=== PATIENT | female | born 1990 | race Caucasian/White ===

== ENCOUNTER → 2016-10-22 | Outpatient (CLI) | payer OTHER ==
[2016-10-22 17:03] LABS: Blood Urea Nitrogen 15 mg/dL (7-17); Non-African American GFR(MDRD) >60 (>60 ml/min/1.73 sqM)
== END | disposition home or self-care (01) ==
LOC: LABWHC1 16:21
PROVIDERS: ATTEND Orthopaedic Surgery Orthopaedic Surgery of the Spine
DX: Z01.812 Encounter for preprocedural laboratory examination (principal); N28.9 Disorder of kidney and ureter, unspecified
CPT/HCPCS: 36415; 82565; 84520

== ENCOUNTER 2017-05-01 10:10 | Emergency (ER) | payer OTHER ==
[2017-05-01 11:27] LABS: Appearance,Urine Cloudy (Clear); Bilirubin,Urine Negative (Negative); Glucose,Urine (UA) Negative (Negative); Ketones,Urine Negative (Negative); Leukocyte Esterase,Urine Negative (Negative); Mucus,Urine Few /hpf; Nitrite,Urine Negative (Negative); PH, Urine 5.5 (5.0-8.0); Particle Count 7403; Protein,Urine Trace (Negative); RBC,Urine >182 /hpf (0-5); Squamous Epithelial Cell,Urine 2 /hpf (0-4); UA Billing (MACRO vs. MICRO) MICRO; Urobilinogen,Urine <2.0 mg/dL (<2.0); WBC,Urine 4 /hpf (0-5)
[2017-05-01] MEDS ORDERED: SODIUM CHLORIDE 0.9% 1,000 ML IV STA (11:47)
[2017-05-01] MEDS ORDERED: MORPHINE SULFATE 4 MG/ML SYRINGE IV STA (11:47)
[2017-05-01] MEDS ORDERED: SODIUM CHLORIDE 0.9% 500 ML IV STA (11:47)
[2017-05-01] MEDS ORDERED: KETOROLAC 30 MG/ML 1 ML VIAL IVP STA (11:47)
--- NOTE | 2017-05-01 12:08 | CT ---
EXAMINATION TYPE: CT abdomen pelvis wo con DATE OF EXAM: 05/01/2017 COMPARISON: NONE HISTORY: Left sided back pain CT DLP: 754.4 mGycm Automated exposure control for dose reduction was used. TECHNIQUE: Helical acquisition of images was performed from the lung bases through the pelvis. FINDINGS: LUNG BASES: No significant abnormality is appreciated. LIVER/GB: No significant abnormality is appreciated. PANCREAS: No significant abnormality is seen. SPLEEN: No significant abnormality is seen. ADRENALS: No significant abnormality is seen. KIDNEYS: Mild to moderate left hydronephrosis secondary to a 3 mm distal left ureteral calculus sever al centimeters above the UVJ. URINARY BLADDER: No significant abnormality is seen. ADENOPATHY: None visualized. OSSEOUS STRUCTURES: Hypertrophic and degenerative change of the spine. 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 Additional levels Schmorl nodes seen.. BOWEL: No significant abnormality is seen. OTHER: Aorta of normal caliber. There is a right adnexal 3.4 cm cystic lesion likely related to ovari an cyst. IUD noted. IMPRESSION: 1. MILD TO MODERATE LEFT HYDRONEPHROSIS SECONDARY TO 3 MM DISTAL LEFT URETERAL CALCULUS. 2. THERE IS A 3.4 CM RIGHT ADNEXAL CYST LIKELY OVARIAN.
[2017-05-01 12:11] LABS: Basophils % (A) 0 %; CHCM 35.2; Eosinophils # (A) 0.2 k/uL (0-0.7); Eosinophils % (A) 2 %; HCT 42.9 % (34.0-46.0); HDW 2.63; HGB 14.7 gm/dL (11.4-16.0); Luc # (Auto) 0.09; Luc % (Auto) 1; Lymphocytes # (A) 1.1 k/uL (1.0-4.8); Lymphocytes % (A) 11 %; MCH 32.3 pg (25.0-35.0); MCHC 34.2 g/dL (31.0-37.0); MCV 94.2 fL (80.0-100.0); Monocytes # (A) 0.4 k/uL (0-1.0); Monocytes % (A) 4 %; Neutrophils # (A) 8.4 k/uL (1.3-7.7); Neutrophils % (A) 82 %; RBC 4.55 m/uL (3.80-5.40); WBC 10.2 k/uL (3.8-10.6); WBC (Perox) 10.03
--- NOTE | 2017-05-01 12:21 | ED ---
General Adult HPI - General Chief complaint: Back Pain/Injury Stated complaint: back pain Time Seen by Provider: 05/01/17 10:27 Source: patient, RN notes reviewed, old records reviewed Mode of arrival: ambulatory Limitations: no limitations - History of Present Illness Initial comments: This is a 26-year-old female here for evaluation of left flank pain, severe left flank pain rating to groin. Mild dysuria, mild discolored urine urine. Patient does have a displaced denies . No trauma. No history of back pain. No modifying factors for pain, pacer last night with sudden onset progressive worsening. No fevers. Mild nausea - Related Data Home Medications Medication Instructions Recorded Confirmed Acetaminophen with Codeine 1 tab PO Q4H PRN 05/01/17 05/01/17 [Tylenol w/codeine #3] Naproxen [Naprosyn] 500 mg PO BID PRN 05/01/17 05/01/17 Allergies Allergy/AdvReac Type Severity Reaction Status Date / Time tramadol AdvReac Vomiting Verified 05/01/17 11:30 Review of Systems ROS Statement: Those systems with pertinent positive or pertinent negative responses have been documented in the HPI. ROS Other: All systems not noted in ROS Statement are negative. Past Medical History Past Medical History: No Reported History Additional Past Medical History / Comment(s): "back problems" History of Any Multi-Drug Resistant Organisms: None Reported Past Surgical History: Section Past Psychological History: No Psychological Hx Reported Smoking Status: Former smoker Past Alcohol Use History: Occasional Past Drug Use History: None Reported General Exam Limitations: no limitations General appearance: alert, in no apparent distress Head exam: Present: atraumatic, normocephalic, normal inspection Eye exam: Present: normal appearance, PERRL, EOMI. Absent: scleral icterus, conjunctival injection, periorbital swelling ENT exam: Present: normal exam, mucous membranes moist Neck exam: Present: normal inspection. Absent: tenderness, meningismus, lymphadenopathy Respiratory exam: Present: normal lung sounds bilaterally. Absent: respiratory distress, wheezes, rales, rhonchi, stridor Cardiovascular Exam: Present: regular rate, normal rhythm, normal heart sounds. Absent: systolic murmur, diastolic murmur, rubs, gallop, clicks GI/Abdominal exam: Present: soft, normal bowel sounds. Absent: distended, tenderness, guarding, rebound, rigid Extremities exam: Present: normal inspection, full ROM, normal capillary refill. Absent: tenderness, pedal edema, joint swelling, calf tenderness Back exam: Present: normal inspection Neurological exam: Present: alert, oriented X3, CN II-XII intact Psychiatric exam: Present: normal affect, normal mood Skin exam: Present: warm, dry, intact, normal color. Absent: rash Course Vital Signs 05/01/17 10:12 Temperature 97.6 F Pulse Rate 81 Respiratory 18 Rate Blood Pressure 122/76 O2 Sat by Pulse 99 Oximetry - Reevaluation(s) Reevaluation #1: 05/01/17 12:20 Patient does have adequate pain control at this time Medical Decision Making - Medical Decision Making 26 evaluated positive left flank pain positive kidney stone. Patient be discharged with pain control - Lab Data Result diagrams: 05/01/17 12:00 Lab Results 05/01/17 05/01/17 05/01/17 Range/Units 11:05 11:05 12:00 WBC 10.2 (3.8-10.6) k/uL RBC 4.55 (3.80-5.40) m/uL Hgb 14.7 (11.4-16.0) gm/dL Hct 42.9 (34.0-46.0) % MCV 94.2 (80.0-100.0) fL MCH 32.3 (25.0-35.0) pg MCHC 34.2 (31.0-37.0) g/dL RDW 13.0 (11.5-15.5) % Plt Count 279 (150-450) k/uL Neutrophils % 82 % Lymphocytes % 11 % Monocytes % 4 % Eosinophils % 2 % Basophils % 0 % Neutrophils # 8.4 H (1.3-7.7) k/uL Lymphocytes # 1.1 (1.0-4.8) k/uL Monocytes # 0.4 (0-1.0) k/uL Eosinophils # 0.2 (0-0.7) k/uL Basophils # 0.0 (0-0.2) k/uL Urine Color Yellow Urine Appearance Cloudy H (Clear) Urine pH 5.5 (5.0-8.0) Ur Specific [place] 1.020 (1.001-1.035) Urine Protein Trace H (Negative) Urine Glucose (UA) Negative (Negative) Urine Ketones Negative (Negative) Urine Blood Moderate H (Negative) Urine Nitrite Negative (Negative) Urine Bilirubin Negative (Negative) Urine Urobilinogen <2.0 (<2.0) mg/dL Ur Leukocyte Esterase Negative (Negative) Urine RBC >182 H (0-5) /hpf Urine WBC 4 (0-5) /hpf Ur Squamous Epith Cells 2 (0-4) /hpf Urine Mucus Few H (None) /hpf Urine HCG, Qual Not Detected (Not Detectd) - Radiology Data Radiology results: report reviewed (CT pelvis is positive for left kidney stone) , image reviewed Disposition Clinical Impression: Calculus of left kidney Disposition: HOME SELF-CARE Condition: Good Instructions: Kidney Stones (ED), Renal Colic (ED) Referrals: Lazaro Tuttle MD [Primary Care Provider] - 1-2 days
[2017-05-01 12:24] LABS: ALT 31 U/L (9-52); AST 18 U/L (14-36); Alkaline Phosphatase 82 U/L (38-126); Amylase 48 U/L (30-110); Anion Gap 9 mmol/L; Blood Urea Nitrogen 14 mg/dL (7-17); Calcium 9.1 mg/dL (8.4-10.2); Carbon Dioxide 25 mmol/L (22-30); Chloride 108 mmol/L (98-107); Glucose 91 mg/dL (74-99); Non-African American GFR(MDRD) >60 (>60 ml/min/1.73 sqM); Potassium 4.3 mmol/L (3.5-5.1); Sodium 142 mmol/L (137-145); Total Bilirubin 0.4 mg/dL (0.2-1.3); Total Protein 7.2 g/dL (6.3-8.2)
[2017-05-01 12:54] VITALS: BP 137/82; PULSE 87; RESP 17; TEMP 98.7
== END 2017-05-01 12:53 | disposition home or self-care (01) ==
LOC: EC 10:10
DX: N20.0 Calculus of kidney (principal); Z87.891 Personal history of nicotine dependence; Z88.5 Allergy status to narcotic agent; Z53.20 Procedure and treatment not carried out because of patient's decision for unspecified reasons
CPT/HCPCS: 99284; 96374; 96361; 36415; 80053; 82150; 83690; 85025; 81001; 81025; 87491; 87591; 87086; 74176; J1885

== ENCOUNTER 2017-06-23 04:53 | Emergency (ER) | payer OTHER ==
[2017-06-23] MEDS ORDERED: SODIUM CHLORIDE 0.9% 500 ML IV STA (05:18)
[2017-06-23 05:44] LABS: Appearance,Urine Clear (Clear); Bilirubin,Urine Negative (Negative); Glucose,Urine (UA) Negative (Negative); Ketones,Urine Negative (Negative); Leukocyte Esterase,Urine Negative (Negative); Nitrite,Urine Negative (Negative); PH, Urine 5.5 (5.0-8.0); Protein,Urine Negative (Negative); Specific Gravity,Urine 1.019 (1.001-1.035); UA Billing (MACRO vs. MICRO) CHEM; Urobilinogen,Urine <2.0 mg/dL (<2.0)
[2017-06-23 06:16] LABS: Basophils % (A) 1 %; CH 33.3; CHCM 34.9; Eosinophils # (A) 0.2 k/uL (0-0.7); Eosinophils % (A) 2 %; HCT 41.3 % (34.0-46.0); HDW 2.57; HGB 13.7 gm/dL (11.4-16.0); Luc # (Auto) 0.08; Luc % (Auto) 1; Lymphocytes # (A) 1.4 k/uL (1.0-4.8); Lymphocytes % (A) 17 %; MCH 31.9 pg (25.0-35.0); MCHC 33.2 g/dL (31.0-37.0); MCV 95.9 fL (80.0-100.0); Mean Platelet Volume 6.9; Monocytes # (A) 0.4 k/uL (0-1.0); Monocytes % (A) 5 %; Neutrophils # (A) 5.9 k/uL (1.3-7.7); Neutrophils % (A) 74 %; RBC 4.31 m/uL (3.80-5.40); RDW 12.9 % (11.5-15.5); WBC (Perox) 8.64
[2017-06-23 06:24] LABS: ALT 26 U/L (9-52); AST 23 U/L (14-36); Alkaline Phosphatase 78 U/L (38-126); Amylase 90 U/L (30-110); Anion Gap 11 mmol/L; Blood Urea Nitrogen 14 mg/dL (7-17); Calcium 8.9 mg/dL (8.4-10.2); Carbon Dioxide 24 mmol/L (22-30); Chloride 106 mmol/L (98-107); Glucose 87 mg/dL (74-99); Non-African American GFR(MDRD) >60 (>60 ml/min/1.73 sqM); Potassium 4.6 mmol/L (3.5-5.1); Sodium 141 mmol/L (137-145); Total Bilirubin 0.4 mg/dL (0.2-1.3); Total Protein 7.1 g/dL (6.3-8.2)
--- NOTE | 2017-06-23 07:09 | ED ---
Abdominal Pain HPI - General Source: patient Mode of arrival: ambulatory Limitations: no limitations - History of Present Illness MD Complaint: abdominal pain Onset/Timin -: days(s) Location: LLQ, RLQ Radiation: none Severity: moderate Quality: cramping, stabbing Consistency: constant Improves With: nothing Worsens With: movement Associated Symptoms: denies other symptoms <Lamonte Dee - Last Filed: 06/23/17 07:06> <Janes Hi - Last Filed: 06/23/17 09:07> - General Chief Complaint: Abdominal Pain Stated Complaint: abd pain Time Seen by Provider: 06/23/17 05:09 - History of Present Illness Initial Comments: This patient is 26-year-old woman who presents to be evaluated for lower abdominal pain. The patient states that the pain seemed to start in the left lower quadrant about 4 days ago. She states that over the past couple of days there has also been pain all across the lower abdomen. She describes the sensation as being aching but sometimes sharp and also at times cramping. She states that the pain was initially mild to moderate but now becoming more severe. She does notice that occasionally when she turns in bed the pain gets worse. She has not noted anything that seems to help the pain. Patient denies any associated symptoms. She denies any previous history of this. (Lamonte Dee) - Related Data Home Medications Medication Instructions Recorded Confirmed Naproxen [Naprosyn] 500 mg PO BID PRN 05/01/17 06/23/17 Albuterol Inhaler [Ventolin Hfa 2 puff INHALATION RT-QID PRN 06/23/17 06/23/17 Inhaler] Previous Rx's Medication Instructions Recorded Tamsulosin HCl [Flomax] 0.4 mg PO DAILY #30 cap 05/01/17 Allergies Allergy/AdvReac Type Severity Reaction Status Date / Time tramadol AdvReac Vomiting Verified 06/23/17 07:12 Review of Systems ROS Other: All systems not noted in ROS Statement are negative. Constitutional: Denies: fever, chills Respiratory: Denies: cough, dyspnea Cardiovascular: Denies: chest pain, palpitations Gastrointestinal: Reports: as per HPI, abdominal pain. Denies: nausea, vomiting , diarrhea, constipation, melena, hematochezia Genitourinary: Reports: other (Patient states that she has very irregular menstrual periods). Denies: dysuria, hematuria Musculoskeletal: Denies: back pain Skin: Denies: rash Neurological: Denies: headache, weakness, numbness <Lamonte Dee - Last Filed: 06/23/17 07:06> ROS Other: All systems not noted in ROS Statement are negative. <Janes Hi - Last Filed: 06/23/17 09:07> ROS Statement: Those systems with pertinent positive or pertinent negative responses have been documented in the HPI. Past Medical History Past Medical History: No Reported History Additional Past Medical History / Comment(s): "back problems" History of Any Multi-Drug Resistant Organisms: None Reported Past Surgical History: Section Past Psychological History: No Psychological Hx Reported Smoking Status: Former smoker Past Alcohol Use History: Occasional Past Drug Use History: None Reported <Lamonte Dee - Last Filed: 06/23/17 07:06> General Exam Limitations: no limitations General appearance: alert, in no apparent distress Head exam: Present: atraumatic, normocephalic Eye exam: Present: normal appearance. Absent: scleral icterus, conjunctival injection ENT exam: Present: normal oropharynx Neck exam: Present: normal inspection Respiratory exam: Present: normal lung sounds bilaterally. Absent: respiratory distress, wheezes, rales, rhonchi, stridor Cardiovascular Exam: Present: regular rate, normal rhythm, normal heart sounds. Absent: systolic murmur, diastolic murmur, rubs, gallop GI/Abdominal exam: Present: soft, tenderness (There is mild lower abdominal tenderness bilaterally, without rebound or guarding), normal bowel sounds. Absent: distended, guarding, rebound, rigid, mass, pulsatile mass, hernia Extremities exam: Present: normal inspection, normal capillary refill. Absent: pedal edema, calf tenderness Back exam: Present: normal inspection. Absent: CVA tenderness (R), CVA tenderness (L) Neurological exam: Present: alert Skin exam: Present: warm, dry, intact, normal color. Absent: rash <Lamonte Dee - Last Filed: 06/23/17 07:06> General appearance: alert, in no apparent distress Head exam: Present: atraumatic, normocephalic, normal inspection Eye exam: Present: normal appearance, PERRL, EOMI. Absent: scleral icterus, conjunctival injection, periorbital swelling ENT exam: Present: normal exam, mucous membranes moist Neck exam: Present: normal inspection. Absent: tenderness, meningismus, lymphadenopathy Respiratory exam: Present: normal lung sounds bilaterally. Absent: respiratory distress, wheezes, rales, rhonchi, stridor Cardiovascular Exam: Present: regular rate, normal rhythm, normal heart sounds. Absent: systolic murmur, diastolic murmur, rubs, gallop, clicks GI/Abdominal exam: Present: soft, normal bowel sounds. Absent: distended, tenderness, guarding, rebound, rigid Extremities exam: Present: normal inspection, full ROM, normal capillary refill. Absent: tenderness, pedal edema, joint swelling, calf tenderness Back exam: Present: normal inspection Neurological exam: Present: alert, oriented X3, CN II-XII intact Psychiatric exam: Present: normal affect, normal mood Skin exam: Present: warm, dry, intact, normal color. Absent: rash <Janes Hi - Last Filed: 06/23/17 09:07> Course <Lamonte Dee - Last Filed: 06/23/17 07:06> <Janes Hi - Last Filed: 06/23/17 09:07> Vital Signs 06/23/17 06/23/17 05:00 07:21 Temperature 98.9 F Pulse Rate 79 78 Respiratory 16 16 Rate Blood Pressure 134/79 119/66 O2 Sat by Pulse 98 98 Oximetry - Reevaluation(s) Reevaluation #1: 06/23/17 09:06 At this point patient's pain does appear to be improved, no distress (Janes Hi) Reevaluation #2: 06/23/17 09:06 Spoke with patient regarding her symptoms, findings. Patient's questions are answered. (Janes Hi) Medical Decision Making - Lab Data Result diagrams: 06/23/17 05:22 06/23/17 05:22 <Lamonte Dee - Last Filed: 06/23/17 07:06> - Lab Data Result diagrams: 06/23/17 05:22 06/23/17 05:22 - Radiology Data Radiology results: report reviewed (Ultrasound pelvis is negative), image reviewed <Janes Hi - Last Filed: 06/23/17 09:07> - Medical Decision Making 26 female the ER with nonspecific abdominal pain. Lab work is negative, ultrasound of pelvis is negative, patient's prior ER visit is reviewed including prior CAT scan of abdomen which was also negative at that time. Patient's pain at this time is improved and is in no acute distress (Janes Hi) - Lab Data Lab Results 06/23/17 06/23/17 06/23/17 Range/Units 05:22 05:22 05:22 WBC (3.8-10.6) k/uL RBC (3.80-5.40) m/uL Hgb (11.4-16.0) gm/dL Hct (34.0-46.0) % MCV (80.0-100.0) fL MCH (25.0-35.0) pg MCHC (31.0-37.0) g/dL RDW (11.5-15.5) % Plt Count (150-450) k/uL Neutrophils % % Lymphocytes % % Monocytes % % Eosinophils % % Basophils % % Neutrophils # (1.3-7.7) k/uL Lymphocytes # (1.0-4.8) k/uL Monocytes # (0-1.0) k/uL Eosinophils # (0-0.7) k/uL Basophils # (0-0.2) k/uL Sodium 141 (137-145) mmol/L Potassium 4.6 (3.5-5.1) mmol/L Chloride 106 (98-107) mmol/L Carbon Dioxide 24 (22-30) mmol/L Anion Gap 11 mmol/L BUN 14 (7-17) mg/dL Creatinine 0.68 (0.52-1.04) mg/dL Est GFR (MDRD) Af Amer >60 (>60 ml/min/1.73 sqM) Est GFR (MDRD) Non-Af >60 (>60 ml/min/1.73 sqM) Glucose 87 (74-99) mg/dL Calcium 8.9 (8.4-10.2) mg/dL Total Bilirubin 0.4 (0.2-1.3) mg/dL AST 23 (14-36) U/L ALT 26 (9-52) U/L Alkaline Phosphatase 78 (38-126) U/L Total Protein 7.1 (6.3-8.2) g/dL Albumin 4.1 (3.5-5.0) g/dL Amylase 90 (30-110) U/L Lipase 469 H (23-300) U/L Urine Color Yellow Urine Appearance Clear (Clear) Urine pH 5.5 (5.0-8.0) Ur Specific [place] 1.019 (1.001-1.035) Urine Protein Negative (Negative) Urine Glucose (UA) Negative (Negative) Urine Ketones Negative (Negative) Urine Blood Negative (Negative) Urine Nitrite Negative (Negative) Urine Bilirubin Negative (Negative) Urine Urobilinogen <2.0 (<2.0) mg/dL Ur Leukocyte Esterase Negative (Negative) Urine HCG, Qual Not Detected (Not Detectd) 06/23/17 Range/Units 05:22 WBC 8.0 (3.8-10.6) k/uL RBC 4.31 (3.80-5.40) m/uL Hgb 13.7 (11.4-16.0) gm/dL Hct 41.3 (34.0-46.0) % MCV 95.9 (80.0-100.0) fL MCH 31.9 (25.0-35.0) pg MCHC 33.2 (31.0-37.0) g/dL RDW 12.9 (11.5-15.5) % Plt Count 262 (150-450) k/uL Neutrophils % 74 % Lymphocytes % 17 % Monocytes % 5 % Eosinophils % 2 % Basophils % 1 % Neutrophils # 5.9 (1.3-7.7) k/uL Lymphocytes # 1.4 (1.0-4.8) k/uL Monocytes # 0.4 (0-1.0) k/uL Eosinophils # 0.2 (0-0.7) k/uL Basophils # 0.0 (0-0.2) k/uL Sodium (137-145) mmol/L Potassium (3.5-5.1) mmol/L Chloride (98-107) mmol/L Carbon Dioxide (22-30) mmol/L Anion Gap mmol/L BUN (7-17) mg/dL Creatinine (0.52-1.04) mg/dL Est GFR (MDRD) Af Amer (>60 ml/min/1.73 sqM) Est GFR (MDRD) Non-Af (>60 ml/min/1.73 sqM) Glucose (74-99) mg/dL Calcium (8.4-10.2) mg/dL Total Bilirubin (0.2-1.3) mg/dL AST (14-36) U/L ALT (9-52) U/L Alkaline Phosphatase (38-126) U/L Total Protein (6.3-8.2) g/dL Albumin (3.5-5.0) g/dL Amylase (30-110) U/L Lipase (23-300) U/L Urine Color Urine Appearance (Clear) Urine pH (5.0-8.0) Ur Specific [place] (1.001-1.035) Urine Protein (Negative) Urine Glucose (UA) (Negative) Urine Ketones (Negative) Urine Blood (Negative) Urine Nitrite (Negative) Urine Bilirubin (Negative) Urine Urobilinogen (<2.0) mg/dL Ur Leukocyte Esterase (Negative) Urine HCG, Qual (Not Detectd) Disposition <Lamonte Dee - Last Filed: 06/23/17 07:06> <Janes Hi - Last Filed: 06/23/17 09:07> Clinical Impression: Abdominal pain Disposition: HOME SELF-CARE Condition: Good Instructions: Abdominal Pain (ED) Referrals: Lazaro Tuttle MD [Primary Care Provider] - 1-2 days
--- NOTE | 2017-06-23 08:00 | US ---
EXAMINATION TYPE: US transvaginal DATE OF EXAM: 06/23/2017 COMPARISON: CT 2017 CLINICAL HISTORY: LLQ pain. Pelvic pain x 4 days, 1, para 1, history of , patient medeiros s IUD TECHNIQUE: Transvaginal (TV) Date of LMP: Unknown EXAM MEASUREMENTS: Uterus: 7.8 x 4.1 x 5.3 cm Endometrial Stripe: 1.1 cm Right Ovary: not seen Left Ovary: 6.0 x 4.3 x 4.8 cm 1. Uterus: anteverted 2. Endometrium: IUD seen in place, fluid in endo 3. Right Ovary: not seen due to overlying peristalsing bowel 4. Left Ovary: 3.9 x 3.0 x 3.0cm cystic lesion Spectral, color and waveform doppler imaging shows good arterial and venous flow within the left ov es; there is no evidence for ovarian torsion within the left ovary. 5. Bilateral Adnexa: pocket of free fluid within posterior cul de sac extending into right adnexa 6. Posterior cul-de-sac: 7.4cm pocket of free fluid IMPRESSION: 1. Free fluid within the pelvis. This is greater than expected for physiologic fluid. 2. Nonvisualization of the right ovary. 3. Follow-up ultrasound of the left ovarian cyst is recommended. Follow-up ultrasound exam following the patient's next normal menstrual period can be performed. 4. The right ovarian cyst identified on CT examination is not identified due to due nonvisualization of the right ovary during this exam.
[2017-06-23 09:44] VITALS: BP 118/70; PULSE 72; RESP 18; TEMP 98
== END 2017-06-23 09:38 | disposition home or self-care (01) ==
LOC: EC 04:53
DX: R10.32 Left lower quadrant pain (principal); R10.31 Right lower quadrant pain; Z87.891 Personal history of nicotine dependence; Z88.6 Allergy status to analgesic agent
CPT/HCPCS: 36415; 76830; 80053; 81003; 81025; 82150; 83690; 85025; 93976; 96360; 96361; 99284

== ENCOUNTER 2018-06-18 03:43 | Emergency (ER) | payer OTHER ==
[2018-06-18] MEDS ORDERED: ASPIRIN 81 MG PO STA (03:57)
--- NOTE | 2018-06-18 03:58 | ED ---
Chest Pain HPI - General Chief Complaint: Chest Pain Stated Complaint: Chest Pain Source: patient, family Mode of arrival: ambulatory Limitations: no limitations - History of Present Illness Initial Comments: Indira is a 27-year-old female presents to the emergency department today for evaluation of chest pain. Patient reports that she was in her usual state of health throughout the day yesterday. She ate pizza for dinner around 10:30 PM. She then had 2 mixed drinks, she states she went to bed around 12:30. She woke around 3 AM with a retrosternal chest pain. She reports she thought this may just be acid reflux so she tried sitting up in bed but the pain persisted and then migrated to her left arm which prompted her to come to the ER for further evaluation. Patient has no cardiac history, no history of HTN, HLD or DM. She has no family history of early cardiac disease. She reports she smoked cigarettes as a teenager but quit more than 5 years ago. She has no personal or family history of clotting disorder. No known history of DVT or PE in the past. She is not experiencing any dyspnea, tachypnea, shortness of breath, lightheadedness or diaphoresis. - Related Data Home Medications Medication Instructions Recorded Confirmed Naproxen [Naprosyn] 500 mg PO BID PRN 05/01/17 06/18/18 Albuterol Inhaler [Ventolin Hfa 2 puff INHALATION RT-QID PRN 06/23/17 06/18/18 Inhaler] Allergies Allergy/AdvReac Type Severity Reaction Status Date / Time tramadol AdvReac Vomiting Verified 06/18/18 03:50 Review of Systems ROS Statement: Those systems with pertinent positive or pertinent negative responses have been documented in the HPI. ROS Other: All systems not noted in ROS Statement are negative. EKG Findings - EKG Comments: EKG Findings:: EKG was obtained upon arrival 3:57 AM, rate is 83 rhythm is sinus , there is a normal axis, NC is 138, QRS is 88 QT is prolonged at 486. There is no acute ST elevations or depressions no evidence of acute ischemia or infarction. Past Medical History Past Medical History: No Reported History Additional Past Medical History / Comment(s): "back problems" History of Any Multi-Drug Resistant Organisms: None Reported Past Surgical History: Section Past Psychological History: No Psychological Hx Reported Smoking Status: Former smoker Past Alcohol Use History: Occasional Past Drug Use History: None Reported General Exam Limitations: no limitations Course Vital Signs 06/18/18 06/18/18 03:46 05:39 Temperature 98.2 F 97.7 F Pulse Rate 84 80 Respiratory 20 14 Rate Blood Pressure 128/75 124/79 O2 Sat by Pulse 100 98 Oximetry Chest Pain MDM - MDM The patient was seen and evaluated, history was obtained from the patient Patient with a heart score of 0 I suspect GI etiology of this pain as the patient does admit to having pizza and alcohol prior to going to bed and waking up with a retrosternal discomfort however I will pursue a further evaluation with EKG, chest x-ray and cardiac enzymes Aspirin and a GI cocktail were ordered Chest x-ray with no acute findings D-dimer and troponin both negative Labs otherwise unremarkable Patient was reevaluated after medications, she reports improvement after GI cocktail. Results were discussed with the patient who expresses relief that there is no acute findings. I advised the patient that I have a high suspicion that this discomfort was GI in nature and relating to her eating pizza and drinking alcohol prior to going to bed, patient then admitted that the pizza did have jalapenos on it and then it was very spicy and she agrees this is likely GI in nature. Return parameters discussed. All questions pertaining to care were answered the best my ability patient was discharged home in stable condition. Disposition Clinical Impression: Atypical chest pain, Gastroesophageal reflux disease Disposition: HOME SELF-CARE Condition: Good Instructions: Chest Pain (ED) Is patient prescribed a controlled substance at d/c from ED?: No Referrals: Lazaro Tuttle MD [Primary Care Provider] - 1-2 days
[2018-06-18 04:12] LABS: Basophils # (A) 0.1 k/uL (0-0.2); Basophils % (A) 1 %; Eosinophils # (A) 0.3 k/uL (0-0.7); Eosinophils % (A) 4 %; HCT 42.5 % (34.0-46.0); HGB 14.3 gm/dL (11.4-16.0); Lymphocytes # (A) 2.7 k/uL (1.0-4.8); Lymphocytes % (A) 33 %; MCH 31.3 pg (25.0-35.0); MCHC 33.8 g/dL (31.0-37.0); MCV 92.7 fL (80.0-100.0); Mean Platelet Volume 6.4; Monocytes # (A) 0.5 k/uL (0-1.0); Monocytes % (A) 6 %; Neutrophils # (A) 4.5 k/uL (1.3-7.7); Neutrophils % (A) 56 %; Platelet Count 284 k/uL (150-450); RBC 4.58 m/uL (3.80-5.40); RDW 11.8 % (11.5-15.5); WBC 8.2 k/uL (3.8-10.6)
[2018-06-18] MEDS ORDERED: MAG HYDROX/AL HYDROX/SIMETH 30 ML, HYOSCYAMINE ELIXIR 10 ML, CIMETIDINE HCL 300 MG, LID... PO STA ×4 (04:17)
[2018-06-18 04:24] LABS: ALT 24 U/L (9-52); AST 20 U/L (14-36); Albumin 4.2 g/dL (3.5-5.0); Alkaline Phosphatase 76 U/L (38-126); Anion Gap 9 mmol/L; Blood Urea Nitrogen 17 mg/dL (7-17); Calcium 9.1 mg/dL (8.4-10.2); Carbon Dioxide 26 mmol/L (22-30); Chloride 107 mmol/L (98-107); Glucose 93 mg/dL (74-99); Potassium 3.7 mmol/L (3.5-5.1); Sodium 142 mmol/L (137-145); Total Bilirubin 0.4 mg/dL (0.2-1.3); Total Protein 7.3 g/dL (6.3-8.2)
[2018-06-18 04:26] LABS: Creatine Kinase 105 U/L (30-135)
[2018-06-18 04:30] LABS: D-Dimer 0.29 mg/L FEU (<0.60); INR 1.1 (<1.2); Partial Thromboplastin Time 26.3 sec (22.0-30.0); Prothrombin Time 10.6 sec (9.0-12.0)
[2018-06-18 04:40] LABS: Creatine Kinase MB 0.8 ng/mL (0.0-2.4); Troponin I <0.012 ng/mL (0.000-0.034)
--- NOTE | 2018-06-18 05:24 | XR ---
EXAMINATION TYPE: XR chest 2V DATE OF EXAM: 06/18/2018 COMPARISON: NONE HISTORY: Chest pain TECHNIQUE: Frontal and lateral views of the chest are obtained. FINDINGS: Heart and mediastinum are normal. Lungs are clear. Diaphragm is normal. Bony thorax appear s normal. IMPRESSION: Normal chest.
[2018-06-18 05:41] VITALS: BP 124/79; PULSE 80; RESP 14; TEMP 97.7
== END 2018-06-18 05:39 | disposition home or self-care (01) ==
LOC: EC 03:43
DX: K21.9 Gastro-esophageal reflux disease without esophagitis (principal); Z87.891 Personal history of nicotine dependence; Z88.6 Allergy status to analgesic agent
CPT/HCPCS: 36415; 71046; 80053; 81025; 82550; 82553; 83735; 84484; 85025; 85379; 85610; 85730; 99285

== ENCOUNTER → 2019-08-14 | Outpatient (CLI) | payer OTHER ==
--- NOTE | 2019-08-14 09:16 | US ---
EXAMINATION TYPE: US thyroid st tissue head/neck DATE OF EXAM: 08/14/2019 COMPARISON: NONE CLINICAL HISTORY: E04.9 NONTOXIC GOITER. Patient states doctor felt enlarged thyroid. No thyroid med s. GLAND SIZE: Right Lobe: 4.5 x 1.8 x 1.6 cm Overall Parenchyma: homogenous Left Lobe: 4.2 x 1.8 x 1.2 cm Overall Parenchyma: homogeneous Isthmus Thickness: 0.4 cm NODULES RIGHT: # of nodules measured on right: 1 1. 0.6 X 0.5 x 0.4 cm hypoechoic nodule at the mid pole with well-defined margins. This nodule is wider than tall and shows intranodular vascularity. Prior size: No prior LEFT: # of nodules measured on left: 0 ISTHMUS: # of nodules measured in the isthmus: 0 Bilateral neck scanned, no evidence of lymphadenopathy. IMPRESSION: 6 mm right thyroid nodule.
== END | disposition home or self-care (01) ==
LOC: RADUSWWP 08:27
PROVIDERS: ATTEND Family Medicine
DX: E04.1 Nontoxic single thyroid nodule (principal)
CPT/HCPCS: 76536

== ENCOUNTER → 2020-04-01 | Outpatient (CLI) | payer OTHER ==
[2020-04-01 15:43] LABS: HCT 40.6 % (34.0-46.0); MCH 31.9 pg (25.0-35.0); MCHC 34.5 g/dL (31.0-37.0); MCV 92.3 fL (80.0-100.0); Mean Platelet Volume 6.7; Platelet Count 300 k/uL (150-450); WBC 9.9 k/uL (3.8-10.6)
[2020-04-02 00:30] LABS: Erythrocyte Sedimentation Rate 7 mm/Hr (0-20)
[2020-04-02 00:56] LABS: African American GFR (CKD) 115.5 (60.0-200.0); Albumin 4.3 g/dL (3.80-4.90); Albumin/Globulin Ratio 1.79 (1.60-3.17); Anion Gap 7.5 mmol/L (4.00-12.00); Calcium 9.3 mg/dL (8.7-10.3); Carbon Dioxide 26.5 mmol/L (21.6-31.8); Globulin 2.4 g/dL (1.6-3.3); Non-African American GFR(CKD) 99.6 (60.0-200.0); Total Bilirubin 0.5 mg/dL (0.3-1.2); Total Protein 6.7 g/dL (6.2-8.2)
[2020-04-02 06:22] LABS: Gliadin AB IgA, Deaminated NEGATIVE (NEGATIVE); Gliadin AB IgA, Unit 1.1 U/mL; Gliadin AB IgG, Deaminated NEGATIVE (NEGATIVE)
== END | disposition home or self-care (01) ==
LOC: LABWHC1 14:19
PROVIDERS: ATTEND Physician Assistant
DX: R19.4 Change in bowel habit (principal)
CPT/HCPCS: 36415; 80053; 83516; 85027; 85652; 86140

== ENCOUNTER → 2024-01-13 | Outpatient (CLI) | payer BC ==
--- NOTE | 2024-01-13 10:42 | MM ---
Reason for Exam: Clinical finding. Baseline mammogram. Indicated Problems: Lump or thickening of the right side for 1 Week(s). Patient History: Menarche at age 12. First Full-Term at age 24. Patient has history of breast feeding. Patient used Hormonal Contraceptives for 14 years. Last menstrual period: 01/12/2024 Prior Study Comparison: Patient's first Mammogram. Tissue Density: The breasts are heterogeneously dense, which may obscure small masses. Findings: Analyzed By CAD. Tiny 5 mm circumscribed low-density nodule located central inner aspect of the right breast on the cc view that are seen on the 3-D images. However, not clearly identified on the 3-D CC rolled view ordered the MLO/lateral views. Otherwise, no suspicious calcifications, significant masses, or other abnormality is seen. Palpable marker placed just medial to the right nipple. Overall Assessment: Incomplete: need additional imaging evaluation, BI-RAD 0 Management: Diagnostic Breast Ultrasound of the right breast. Electronically signed and approved by: Luisito Valle M.D. Radiologist
--- NOTE | 2024-01-13 13:06 | USB ---
Reason for Exam: Clinical finding. Patient History: Menarche at age 12. First Full-Term at age 24. Patient has history of breast feeding. Patient used Hormonal Contraceptives for 14 years. Technique: Method: Targeted. Patient Position: Supine. Findings: The area of palpable concern of the right breast, the medial section of the breast of the right breast, the axilla of the right breast and the retroareolar of the right breast were scanned. Targeted ultrasound medial aspect of the right breast 1:00 to 5:00 including scanning of the subareolar region and axilla. There is no solid or cystic lesion. No abnormality at the patient's palpable site. No axillary lymphadenopathy. Overall Assessment: Probably benign, BI-RAD 3 Management: Diagnostic Mammogram of the right breast in 6 months. Further clinical management of any suspicious palpable areas. Results were given to the patient verbally at the time of exam. Electronically signed and approved by: Luisito Valle M.D. Radiologist
== END | disposition home or self-care (01) ==
LOC: RADMAMWWP 09:47
PROVIDERS: ATTEND Family Medicine
DX: R92.333 Mammographic heterogeneous density, bilateral breasts (principal)
CPT/HCPCS: 77062; 77066